=== PATIENT | male | born 1955 | race African-American/Black ===

== ENCOUNTER 2019-12-12 21:04 | Emergency (ER) | payer MEDICARE, MEDICAID ==
[~2019-12-12] VITALS: Ht 177.8 cm; Wt 90.7 kg
[2019-12-12 21:10] VITALS: BP 137/83
--- NOTE | 2019-12-12 21:10 | NUR ---
ED Nurse Note: Pt denies any pain and has no complaints at this time.
--- NOTE | 2019-12-12 21:10 | NUR ---
ED Nurse Note: Pt brought into ED from home by LULU RA 27 for c/o weakness. Per [facility], family called 911 because patient appeared weak and not arousable at home. Pt presents in the ED as lethargic but is arousable to name. Pt states he did not take oxycodone, but took 30mg of Ambien earlier tonight. Pt states he has not taken sleeping medication in a long time. Pt does not want to harm himself. Pt is aaox4, breathing is normal and unlabored. Pt connected to safety scientist and placed in gown. Will continue to monitor.
--- NOTE | 2019-12-12 21:14 | Emergency Room Report ---
History of Present Illness General Source: Patient, EMS Present Illness HPI EMS was called for altered mental status. Apparently patient took extra oxycodone and a benzodiazepine sleeper. In addition he had a clonidine patch on. Patient was given Narcan in the field with improvement in mentation. Glucose in the field was 264. Patient denies pain at this time. No fevers, chills, sore throat, chest pain, palpitations, nausea, vomiting, diarrhea, dysuria, abdominal pain, shortness of breath, joint pain, rashes, depression, anxiety, visual changes, dizziness, headache. Allergies: Uncoded Allergies: SULFA (Allergy, Unknown, 12/12/19) Patient History Past Medical History: see triage record Review of Systems All Other Systems: negative except mentioned in HPI Physical Exam Vital Signs Date Time Temp Pulse Resp B/P (MAP) Pulse Ox O2 Delivery O2 Flow Rate FiO2 12/12/19 21:07 98.6 93 18 137/83 (101) 95 Room Air Sp02 EP Interpretation: reviewed, normal General Appearance: well appearing, no apparent distress, non-toxic, lethargic , other - Slowly answering questions Head: normocephalic Eyes: bilateral eye PERRL, bilateral eye EOMI, bilateral eye Scleral Injection ENT: moist mucus membranes Neck: full range of motion, supple Respiratory: lungs clear, normal breath sounds Cardiovascular #1: regular rate, rhythm Cardiovascular #2: 2+ radial (L) Gastrointestinal: normal inspection, non tender, no mass, non-distended, decreased bowel sounds Musculoskeletal: back normal, normal range of motion Neurologic: alert, motor strength/tone normal, manager hydraulic III-XII nml as tested, DTRs symmetric, oriented x3, sensory intact Psychiatric: mood/affect normal - Somewhat depressed Skin: no rash, warm/dry Medical Decision Making Diagnostic Impression: Primary Impression: Overdose Qualified Codes: T50.901A - Poisoning by unspecified drugs, medicaments and biological substances, accidental (unintentional), initial encounter ER Course Patient presents with altered level of consciousness with increased usage of narcotics. Differential includes excess narcotics, electrolyte of normality, acute myocardial infarction amongst others. Patient placed on a electronic device monitor. Evaluation with EKG, chest x-ray and labs. Patient is a nonfocal neurologic exam at this time and CT head is not indicated. EKG rate 82 PACs P pulmonale chest x-ray no infiltrates. Labs with minimally elevated white count without left shift. BUN 20. Minimally elevated CPK. Glucose 264. Urinalysis not produced. Patient snoring. CO2 monitor applied. Sats 100%. 2137 Patient awake and wants to go home. Requested he stay for further evaluation. He agrees. Discussed the danger of mixing benzodiazepines with opiates. Patient understands. Patient observed and ambulatory. came to take the patient home. Narcan prescription given to the patient. Patient stable for outpatient observation and treatment. Laboratory Tests Test 12/12/19 21:25 White Blood Count 10.9 K/UL (4.8-10.8) H Red Blood Count 4.12 M/UL (4.70-6.10) L Hemoglobin 12.3 G/DL (14.2-18.0) L Hematocrit 37.9 % (42.0-52.0) L Mean Corpuscular Volume 92 FL (80-99) Mean Corpuscular Hemoglobin 30.0 PG (27.0-31.0) Mean Corpuscular Hemoglobin Concent 32.5 G/DL (32.0-36.0) Red Cell Distribution Width 13.7 % (11.6-14.8) Platelet Count 192 K/UL (150-450) Mean Platelet Volume 7.4 FL (6.5-10.1) Neutrophils (%) (Auto) 66.3 % (45.0-75.0) Lymphocytes (%) (Auto) 22.1 % (20.0-45.0) Monocytes (%) (Auto) 8.7 % (1.0-10.0) Eosinophils (%) (Auto) 2.0 % (0.0-3.0) Basophils (%) (Auto) 0.9 % (0.0-2.0) Sodium Level 139 MMOL/L (136-145) Potassium Level 3.8 MMOL/L (3.5-5.1) Chloride Level 104 MMOL/L (98-107) Carbon Dioxide Level 23 MMOL/L (21-32) Anion Gap 12 mmol/L (5-15) Blood Urea Nitrogen 20 mg/dL (7-18) H Creatinine 1.2 MG/DL (0.55-1.30) Estimated Glomerular Filtration Rate > 60 mL/min (>60) Glucose Level 264 MG/DL (74-106) H Calcium Level 8.9 MG/DL (8.5-10.1) Total Bilirubin 0.2 MG/DL (0.2-1.0) Aspartate Amino Transferase (AST) 38 U/L (15-37) H Alanine Aminotransferase (ALT) 52 U/L (12-78) Alkaline Phosphatase 93 U/L (46-116) Total Creatine Kinase 870 U/L (26-308) H Troponin I 0.018 ng/mL (0.000-0.056) Total Protein 7.5 G/DL (6.4-8.2) Albumin 3.1 G/DL (3.4-5.0) L Globulin 4.4 g/dL Albumin/Globulin Ratio 0.7 (1.0-2.7) L Salicylates Level 0.7 ug/mL (2.8-20) L Acetaminophen Level < 2 MCG/ML (10-30) L Serum Alcohol < 3 mg/dL EKG Diagnostic Results Rate: normal Rhythm: NSR ST Segments: no acute changes - PACs nonspecific ST-T wave changes Rhythm Strip Diag. Results EP Interpretation: yes Rhythm: NSR, other - Rate 82 with PACs P pulmonale Chest X-Ray Diagnostic Results Chest X-Ray Diagnostic Results : Chest X-Ray Ordered: Yes # of Views/Limited/Complete: 1 View Indication: Other EP Interpretation: Yes Interpretation: no consolidation, no effusion, no pneumothorax Impression: No acute disease Electronically Signed by: Electronically signed by Luther Gonzalez MD Last Vital Signs Date Time Temp Pulse Resp B/P (MAP) Pulse Ox O2 Delivery O2 Flow Rate FiO2 12/12/19 23:10 98.6 78 15 158/86 100 Room Air Status: improved Disposition: HOME, SELF-CARE Condition: Improved Scripts Naloxone HCl (Narcan) 4 Mg [place] 4 MG NS NEEDED, #1 SPRAY 1 Refill Prov: Luther Gonzalez MD 12/12/19 Luther Gonzalez MD Dec 12, 2019 21:14
--- NOTE | 2019-12-12 21:40 | NUR ---
ED Nurse Note: Pt is pulling at IV and requesting to go home. ERMD bedside speaking with pt.
[2019-12-12 21:42] LABS: BASOPHILS % (AUTO) 0.9 % (0.0-2.0); HEMATOCRIT 37.9 % (42.0-52.0); HEMOGLOBIN 12.3 G/DL (14.2-18.0); LYMPHOCYTES % (AUTO) 22.1 % (20.0-45.0); MEAN CORPUSCULAR VOLUME 92 FL (80-99); MONOCYTES % (AUTO) 8.7 % (1.0-10.0); NEUTROPHILS % (AUTO) 66.3 % (45.0-75.0); PLATELET COUNT 192 K/UL (150-450); RED BLOOD COUNT 4.12 M/UL (4.70-6.10); RED CELL DISTRIBUTION WIDTH 13.7 % (11.6-14.8); WHITE BLOOD COUNT 10.9 K/UL (4.8-10.8)
[2019-12-12 21:53] LABS: ANION GAP 12 mmol/L (5-15); BLOOD UREA NITROGEN 20 mg/dL (7-18); CALCIUM 8.9 MG/DL (8.5-10.1); CARBON DIOXIDE 23 MMOL/L (21-32); CHLORIDE 104 MMOL/L (98-107); CREATININE 1.2 MG/DL (0.55-1.30); POTASSIUM 3.8 MMOL/L (3.5-5.1); SODIUM 139 MMOL/L (136-145)
[2019-12-12 21:58] LABS: ALANINE AMINOTRANSFERASE 52 U/L (12-78); ALBUMIN 3.1 G/DL (3.4-5.0); ALBUMIN/GLOBULIN RATIO 0.7 (1.0-2.7); ALKALINE PHOSPHATASE 93 U/L (46-116); ASPARTATE AMINO TRANSFERASE 38 U/L (15-37); BILIRUBIN,TOTAL 0.2 MG/DL (0.2-1.0); CREATINE KINASE 870 U/L (26-308)
[2019-12-12] MEDS ORDERED: NARCAN4 MG NS (22:04)
--- NOTE | 2019-12-12 22:35 | NUR ---
ED Nurse Note: Pt able to ambulate to restroom.
[2019-12-12 22:45] VITALS: BP 153/87
--- NOTE | 2019-12-12 23:00 | NUR ---
ED Nurse Note: Pt is more awake at this time. Pt is able to ambulate and is aaox4. Pt called to pick him up. Pt requesting to go home and ERMD is going to clear for DC.
[2019-12-12 23:10] VITALS: BP 158/86
--- NOTE | 2019-12-12 23:10 | NUR ---
ER DISCHARGE NOTE: Patient is cleared to be discharged per ERMD, pt is aox4, on room air, with stable vital signs. pt was given dc and prescription instructions, pt was able to verbalize understanding, pt id band and iv site removed without complications. pt is able to ambulate with steady gait. pt took all belongings.
--- NOTE | 2019-12-13 11:11 | Diagnostic Imaging Report ---
Indication: Dyspnea Comparison: None A single view chest radiograph was obtained. Findings: Cardiomediastinal appearance is prominent but may be within normal limits for age and low lung volumes. The lungs are clear. Pulmonary vascularity is appropriate. The diaphragmatic contour is smooth and costophrenic angles are sharp. No pleural effusions are identified. The bones are unremarkable. Impression: No acute findings
== END 2019-12-12 23:10 | disposition home or self-care (01) ==
LOC: EDBD 21:04 → EMR 21:15
DX: T40.2X1A Poisoning by other opioids, accidental (unintentional), initial encounter (principal); T42.4X1A Poisoning by benzodiazepines, accidental (unintentional), initial encounter; Y92.9 Unspecified place or not applicable; Z88.2 Allergy status to sulfonamides
CPT/HCPCS: 36415; 71045; 80053; 82550; 84484; 85025; 93005; 96360; 96361; 99284; G0480; J7030